=== PATIENT | female | born 1965 | race Caucasian/White ===

== ENCOUNTER 2016-11-07 15:01 | Emergency (ER) | payer OTHER, BC ==
[~2016-11-07] VITALS: Ht 162.6 cm; Wt 93.8 kg
[~2016-11-07 15:01] MED LIST: CEFDINIR300 MG PO; LEVAQUIN750 MG PO; PYRIDIUM200 MG PO; VENTOLIN HFA18 GM IH
[2016-11-07] MEDS ORDERED: FLEXERIL10 MG PO (18:56)
[2016-11-07 19:24] VITALS: BP 180/112
== END 2016-11-07 19:25 | disposition home or self-care (01) ==
LOC: EME 15:01
DX: S16.1XXA Strain of muscle, fascia and tendon at neck level, initial encounter (principal); V43.53XA Car driver injured in collision with pick-up truck in traffic accident, initial encounter
CPT/HCPCS: 70450; 72125; 99281; 99284

== ENCOUNTER 2016-11-10 20:46 | Emergency (ER) | payer OTHER, BC ==
[~2016-11-10] VITALS: Ht 162.6 cm; Wt 93.8 kg
[~2016-11-10 20:46] MED LIST changes: +FLEXERIL10 MG PO
[2016-11-10] MEDS ORDERED: VALIUM5 MG PO (21:47)
[2016-11-10] MEDS ORDERED: NORCO 5/3251 TABLET PO (21:47)
[2016-11-10 22:03] VITALS: BP 174/91
== END 2016-11-10 22:06 | disposition home or self-care (01) ==
LOC: EME 20:46
DX: M54.12 Radiculopathy, cervical region (principal); F07.81 Postconcussional syndrome
CPT/HCPCS: 99281; 99283; J8540

== ENCOUNTER 2017-11-02 15:57 | Emergency (ER) | payer BC ==
[~2017-11-02] VITALS: Ht 162.6 cm; Wt 92.6 kg
[~2017-11-02 15:57] MED LIST changes: +NORCO 5/3251 TABLET PO; +VALIUM5 MG PO
[2017-11-02 16:15] LABS: HEMATOCRIT 45.1 % (36.0-46.0); MCH 28.2 PG (29.0-34.0); MCHC 33.3 G/DL (30.0-36.0); MCV 84.8 FL (83-99); PLATELET COUNT 373 K/uL (156-360); RBC DIS.WIDTH-CV 13.6 % (11.8-14.6); RBC DIS.WIDTH-SD 41.6 % (39-53); RED BLOOD COUNT 5.32 M/uL (3.80-5.20); WHITE BLOOD COUNT 9.6 K/uL (4.1-10.2)
[2017-11-02 16:24] LABS: ALBUMIN 4.3 g/dL (3.2-4.8); CHLORIDE 107 mEq/L (99-109); POTASSIUM 4.5 mEq/L (3.7-5.4); SODIUM 140 mEq/L (136-147)
[2017-11-02 16:26] LABS: GLUCOSE 92 mg/dL (70-99); TOTAL PROTEIN 8.3 g/dL (6.4-8.3)
[2017-11-02 16:28] LABS: TOTAL BILIRUBIN 1.5 mg/dL (0.0-1.0)
[2017-11-02 16:30] LABS: ALKALINE PHOSPHATASE 119 IU/L (3-129); CREATININE 0.9 mg/dL (0.6-1.3); GFR ESTIMATE (CALCULATED) > 59 mL/min/
[2017-11-02 16:31] LABS: AST (GOT) 19 IU/L (2-34); UREA NITROGEN (BUN) 16 mg/dL (9-23)
[2017-11-02 16:33] LABS: ALT (GPT) 22 IU/L (3-49)
[2017-11-02 16:39] LABS: QUANTITATIVE HCG < 4.0 MIU/ML
[2017-11-02 17:22] LABS: AMYLASE 50 IU/L (1-118)
[2017-11-02 17:30] LABS: LIPASE 21 U/L (1.0-51.0)
[2017-11-02 17:30] LABS: APPEARANCE CLEAR ((CLEAR)); BILIRUBIN NEGATIVE; BLOOD SMALL; COLOR YELLOW ((YELLOW)); GLUCOSE (STRIP) NEGATIVE; KETONES NEGATIVE; LEUKOCYTES TRACE; NITRITE NEGATIVE; PROTEIN (STRIP) NEGATIVE; SPECIFIC GRAVITY 1.023 (1.000-1.030); UROBILINOGEN 0.2 MG/DL (0.2-1.0)
[2017-11-02 17:46] LABS: BACTERIA NONE SEEN /HPF; EPITHELIAL CELLS RARE /HPF; MUCUS 3+ /LPF; RED BLOOD CELLS 0-5 /HPF (0-5); UCUL ADDED? NO; WHITE BLOOD CELLS 0-5 /HPF (0-5)
[2017-11-02] MEDS ORDERED: ZOFRAN ODT4 MG PO (21:04)
[2017-11-02] MEDS ORDERED: PERCOCET 5/31 TABLET PO (21:04)
[2017-11-02 21:18] VITALS: BP 137/94
== END 2017-11-02 21:20 | disposition home or self-care (01) ==
LOC: EME 15:57
DX: K80.20 Calculus of gallbladder without cholecystitis without obstruction (principal); J45.909 Unspecified asthma, uncomplicated; I10 Essential (primary) hypertension
CPT/HCPCS: 76705; 80053; 81003; 82150; 83690; 84702; 85027; 99281; 99284; J1885

== ENCOUNTER 2017-11-28 07:22 | Day surgery (SDC) | payer BC ==
[~2017-11-28] VITALS: Ht 162.6 cm; Wt 93.8 kg
[~2017-11-28 07:22] MED LIST changes: +AMBIEN10 MG PO; +ATARAX,VISTARIL25 MG PO; +CYMBALTA60 MG PO; +FLEXERIL5 MG PO; +HYZAAR 100-21 TABLET PO; +MOBIC15 MG PO; +NEURONTIN300 MG PO; +PERCOCET 5/31 TABLET PO; +PROAIR HFA8.5 GM IH; +ZOFRAN ODT4 MG PO
[2017-11-28] MEDS ORDERED: MOTRIN600 MG PO (11:04)
[2017-11-28] MEDS ORDERED: NORCO 5/3251 TABLET PO (11:04)
[2017-11-28 12:03] VITALS: BP 116/75
[2017-11-28 13:10] VITALS: BP 115/61
== END 2017-11-28 13:45 | disposition home or self-care (01) ==
LOC: SDC 07:22
DX: K80.10 Calculus of gallbladder with chronic cholecystitis without obstruction (principal); E72.12 Methylenetetrahydrofolate reductase deficiency; M19.90 Unspecified osteoarthritis, unspecified site; M50.90 Cervical disc disorder, unspecified, unspecified cervical region; I10 Essential (primary) hypertension; G43.109 Migraine with aura, not intractable, without status migrainosus; J45.909 Unspecified asthma, uncomplicated; M79.7 Fibromyalgia; Z80.0 Family history of malignant neoplasm of digestive organs; Z80.42 Family history of malignant neoplasm of prostate; Z80.6 Family history of leukemia
CPT/HCPCS: 74300; 88304; J0131; J1100; J1170; J1885; J2250; J2405; J2550; J2710; J7643; S0020; S0074